=== PATIENT | female | born 1945 | race African-American/Black ===

== ENCOUNTER → 2016-10-16 | Day surgery (SDC) | payer OTHER, BC ==
--- NOTE | 2016-10-17 10:22 | OP ---
DATE OF OPERATION: 10/16/2016 PREOPERATIVE DIAGNOSIS: Abnormal left mammography. POSTOPERATIVE DIAGNOSIS: Abnormal left mammography. PROCEDURE: Left stereotactic needle biopsy with clips. SURGEON: Merissa Jaramillo MD ANESTHESIA: Local. COMPLICATIONS: None. This was a sterile procedure. INDICATIONS FOR PROCEDURE: Patient presented for a screening mammography that noted clustered microcalcifications in the left upper outer breast. There was a slightly smaller cluster posterior to this, but they had a very similar morphology. My recommendation was needle biopsy of the larger cluster for definitive diagnosis. The procedure was discussed including the need for clip. PROCEDURE IN DETAIL: Patient was brought to [facility]. laid prone on the OR table. Using the lateral approach, the calcifications in the upper outer left breast were identified. A sterile prep was obtained. A target was chosen, there was a positive stroke margin. Using Betadine and 1% lidocaine, a 9-gauge VIDTEQ [employer] device was used to take several cores from this area. Cores showed calcifications within them, used and handled with the usual calcification protocol. A clip was deployed in the area. Hemostasis was ensured with direct pressure. The incision was closed with Steri-Strips. She tolerated the procedure well and left the breast imaging center in good condition. MERISSA JARAMILLO M.D. [id number]
--- NOTE | 2016-10-17 15:10 | PATH ---
Surgical Pathology Report Patient Name: GAVIN NAZARIO [facility]. Rec. #: [id number] /Age/Gender: 1945 (Age: 71) / F Account: [id number] Location: [facility] Taken: 10/16/2016 Received: 10/16/2016 Reported: 10/17/2016 Physicians: Merissa Santana M.D. Specimen(s) Received A: LEFT BREAST BIOPSY WITH CALCIFICATIONS B: LEFT BREAST BIOPSY WITHOUT CALCIFICATIONS Clinical History Microcalcifications Final Diagnosis A. BREAST, LEFT, WITH CALCIFICATIONS, STEREOTACTIC CORE BIOPSY: SCLEROSED FIBROADENOMA WITH COARSE STROMAL CALCIFICATIONS. DENSE STROMAL FIBROSIS. B. BREAST, LEFT, WITHOUT CALCIFICATIONS, STEREOTACTIC CORE BIOPSY: BENIGN BREAST TISSUE WITH DENSE STROMAL FIBROSIS. Electronically Signed Quentin Prasad M.D. Gross Description A. Received in formalin, labeled "left breast with calcifications" are 5 jiménez-yellow, cylindrical portions of fibroadipose tissue ranging from 0.7-3.3 cm. in length and averaging 0.3 cm in diameter. The specimen is submitted in toto in one cassette. B. Received in formalin, labeled "left breast without calcifications" are 6 jiménez-yellow, cylindrical portions of fibroadipose tissue ranging from 0.6-4.0 cm. in length and averaging 0.2 cm in diameter. The specimen is submitted in toto in one cassette. Time to formalin fixation: 5 minutes Total formalin fixation time: Approximately 7 hours. /10/16/2016/10/16/2016
== END | disposition home or self-care (01) ==
LOC: FMAMMOTONE 08:49
PROVIDERS: ATTEND Surgery
PROC: 0HBU3ZX Excision of Left Breast, Percutaneous Approach, Diagnostic (ICD-10-PCS; principal; 2016-10-16)
DX: D24.2 Benign neoplasm of left breast (principal); R92.8 Other abnormal and inconclusive findings on diagnostic imaging of breast; N60.32 Fibrosclerosis of left breast; N64.89 Other specified disorders of breast
CPT/HCPCS: 19081; 87899; 88305-TC; A4648

== ENCOUNTER → 2019-10-11 | Day surgery (SDC) | payer OTHER, BC ==
--- NOTE | 2019-10-12 16:25 | PATH ---
Surgical Pathology Report Patient Name: GAVIN NAZARIO [facility]. Rec. #: [id number] /Age/Gender: 1945 (Age: 74) / F Account: [id number] Location: [facility] Taken: 10/11/2019 Received: 10/11/2019 Reported: 10/12/2019 Physicians: Charo Cuevas M.D. Specimen(s) Received LEFT BREAST CORE BIOPSY Clinical History Nonpalpable lesion 12:30, 0.63 cm mass Ultrasound findings: Suspicious Final Diagnosis LEFT BREAST 12:30, 0.63 CM MASS, ULTRASOUND GUIDED CORE BIOPSY: BREAST TISSUE WITH AGGREGATES OF FOREIGN BODY TYPE MULTINUCLEATED GIANT CELLS, OLD HEMORRHAGE (HEMOSIDERIN-LADEN MACROPHAGES), MILD CHRONIC INFLAMMATION, AND STROMAL FIBROSIS. Electronically Signed Meghana Estrada M.D. Gross Description Received in formalin labeled "left 12:30," are 3 jiménez-yellow, cylindrical portions of fibroadipose tissue ranging from 1.1-1.4 cm in length and averaging 0.1 cm in diameter. The specimens are submitted in toto in one cassette. Time to formalin fixation: Less than one minute Total formalin fixation time: Approximately 7 hours. DL/10/11/2019 saudi/10/11/2019
== END | disposition home or self-care (01) ==
LOC: JRADUS-SUR 09:30
PROVIDERS: ATTEND Physician Assistant
PROC: 0H9U3ZX Drainage of Left Breast, Percutaneous Approach, Diagnostic (ICD-10-PCS; principal; 2019-10-11)
DX: N60.32 Fibrosclerosis of left breast (principal)
CPT/HCPCS: 19083; 77065-TC; 87899; 88305-TC; A4648

== ENCOUNTER 2021-11-01 06:42 | Day surgery (SDC) | payer OTHER, BC ==
[2021-10-01 14:53] VITALS: BMI 35.6
[2021-11-01] MEDS ORDERED: CEFAZOLIN 2 GM in DEXTROSE 5%-WATER - 50 ML IVPB ONE (07:02)
[2021-11-01] MEDS ORDERED: TRANEXAMIC ACID 1000 MG/10 ML VIAL IVPUSH ONE (07:02)
[2021-11-01] MEDS ORDERED: ceFAZolin SODIUM 1 GM VIAL ONE (07:27)
[2021-11-01] MEDS ORDERED: THROMBIN (BOVINE) 5,000 UNIT VIAL TP ONE ×2 (07:28→10:30)
[2021-11-01] MEDS: CELECOXIB 200 MG CAPSULE PO ONE ×2 (07:33→13:01)
[2021-11-01] MEDS ORDERED: ONDANSETRON 4 MG/2 ML VIAL IVPUSH PRN (08:06)
[2021-11-01] MEDS ORDERED: LACTATED RINGERS SOLUTION 1,000 ML IV SCH (08:15)
[2021-11-01] MEDS ORDERED: MIDAZOLAM HCL 2 MG/2 ML SINGLE DOSE VIAL ONE (08:58)
[2021-11-01] MEDS ORDERED: FENTANYL CITRATE/PF 50 MCG/ML VIAL ONE (08:58)
[2021-11-01] MEDS ORDERED: BUPIVACAINE HCL/PF 0.5% (5MG/ML) 10 ML VIAL ONE (08:58)
[2021-11-01] MEDS ORDERED: ROPIVACAINE HCL/PF 100 MG/20 ML VIAL ONE (08:59)
[2021-11-01] MEDS ORDERED: SODIUM CHLORIDE 0.9% P/F 10 ML VIAL IJ ONE (08:59)
[2021-11-01] MEDS ORDERED: BUPIVICAINE 0.25%/MORPH PF/KETOROLAC - 51ML DISP.SYRINGE IA ONE ×3 (09:00→10:58)
[2021-11-01] MEDS ORDERED: oxyCODONE HCL 5 MG TABLET PO PRN ×2 (11:30)
[2021-11-01] MEDS: ACETAMINOPHEN 500 MG TABLET (FP) PO SCH ×4 (12:00→23:58)
[2021-11-01] MEDS ORDERED: ACETAMINOPHEN 500 MG TABLET (FP) ONE (12:06)
[2021-11-01] MEDS: ETHACRYNIC ACID 25 MG TABLET PO SCH (13:02)
[2021-11-01] MEDS: MULTIVITAMINS (DAILY MVI) TABLET (FP) PO SCH (13:03)
[2021-11-01] MEDS: SENNOSIDES/DOCUSATE COMBO (SENNA PLUS) TABLET (UD) PO SCH ×2 (13:03→22:22)
[2021-11-01] MEDS: ALLOPURINOL 100 MG TABLET (FP) PO SCH (13:03)
[2021-11-01] MEDS: PANTOPRAZOLE 40 MG TABLET PO SCH (13:03)
[2021-11-01] MEDS ORDERED: DEXTROSE 5%-WATER 100 ML IVPB ONE (17:28)
[2021-11-01] MEDS ORDERED: CEFAZOLIN SODIUM 2 GM VIAL ONE (17:29)
[2021-11-01] MEDS: CEFAZOLIN SODIUM 2 GM in DEXTROSE 5%-WATER 100 ML IVPB SCH (17:38)
[2021-11-01] MEDS ORDERED: ATORVASTATIN CA 10 MG TABLET (FP) PO SCH (22:00)
[2021-11-01] MEDS ORDERED: cloNIDine HCL 0.1 MG TABLET PO SCH (22:00)
[2021-11-01] MEDS ORDERED: NEBIVOLOL 10 MG TABLET (FP) PO SCH (22:00)
[2021-11-02] MEDS: ACETAMINOPHEN 500 MG TABLET (FP) PO SCH ×2 (06:53→11:40)
[2021-11-02] MEDS ORDERED: LEVOTHYROXINE NA 50 MCG TABLET (FP) PO SCH (07:00)
[2021-11-02] MEDS ORDERED: CEFAZOLIN SODIUM 2 GM in DEXTROSE 5%-WATER 100 ML IVPB SCH (07:00)
[2021-11-02] MEDS ORDERED: DEXTROSE 5%-WATER 100 ML IVPB ONE (07:00)
[2021-11-02] MEDS ORDERED: CEFAZOLIN SODIUM 2 GM VIAL ONE (07:01)
[2021-11-02] MEDS: CEFAZOLIN SODIUM 2 GM in DEXTROSE 5%-WATER 100 ML IVPB SCH (07:08)
[2021-11-02] MEDS ORDERED: ASPIRIN 325 MG TABLET PO SCH (08:00)
[2021-11-02] MEDS: SENNOSIDES/DOCUSATE COMBO (SENNA PLUS) TABLET (UD) PO SCH (09:04)
[2021-11-02] MEDS: MULTIVITAMINS (DAILY MVI) TABLET (FP) PO SCH (09:05)
[2021-11-02] MEDS: ALLOPURINOL 100 MG TABLET (FP) PO SCH (09:05)
[2021-11-02] MEDS: PANTOPRAZOLE 40 MG TABLET PO SCH (09:05)
[2021-11-02] MEDS: ETHACRYNIC ACID 25 MG TABLET PO SCH (09:06)
[2021-11-02] MEDS ORDERED: SPIRONOLACTONE 25 MG TABLET PO SCH (10:00)
[2021-11-02] MEDS ORDERED: amLODIPine BESYLATE 5 MG TABLET (FP) PO SCH (10:00)
[2021-11-02 10:13] VITALS: BP 104/50; PULSE 62; RESP 16; TEMP 98.2
== END 2021-11-02 13:02 | disposition home health service (06) ==
LOC: FASU 06:42 → FASUSAT 06:42 → FM/S 12:37 → FASUSAT 11-02 13:02
PROVIDERS: ATTEND Orthopaedic Surgery
PROC: 8E0YXBZ Computer Assisted Procedure of Lower Extremity (ICD-10-PCS; 2021-11-01)
PROC: 8E0Y0CZ Robotic Assisted Procedure of Lower Extremity, Open Approach (ICD-10-PCS; 2021-11-01)
PROC: 0SRD0L9 Replacement of Left Knee Joint with Medial Unicondylar Synthetic Substitute, Cemented, Open Approach (ICD-10-PCS; principal; 2021-11-01 09:36)
DX: M17.12 Unilateral primary osteoarthritis, left knee (principal)
CPT/HCPCS: 20985; 27446; C1776; S2900; 73560-TC-LT-FY; 94760; 97010-GP; 97116-GP; 97162-GP; J0735